=== PATIENT | male | born 1960 | race Two or more races ===

== ENCOUNTER 2025-06-20 09:35 | Emergency (ER) | payer OTHER ==
[~2025-06-20] VITALS: Ht 157.5 cm; Wt 77.1 kg
[2025-06-20] MEDS ORDERED: ENTRESTO 49 MG1 EACH PO (09:53)
[2025-06-20] MEDS ORDERED: ECOTRIN81 MG PO (09:54)
[2025-06-20] MEDS ORDERED: TAMS0.4C PO (09:54)
[2025-06-20] MEDS ORDERED: KETOROLAC TROMETHAMINE 60 MG VIAL IM ONE ×2 (10:45→11:30)
== END 2025-06-20 13:20 | disposition home or self-care (01) ==
LOC: ER 09:35
DX: M79.671 Pain in right foot (principal)
CPT/HCPCS: 73630; 96372; 99283; J1885